=== PATIENT | female | born 1970 | race Caucasian/White ===

== ENCOUNTER 2023-02-02 09:36 | Day surgery (SDC) | payer OTHER ==
[~2023-02-02] VITALS: Ht 170.2 cm; Wt 113.6 kg
[~2023-02-02 09:36] MED LIST: PROM25S PR
[2023-02-02] MEDS ORDERED: LINZESS72 MCG (10:12)
[2023-02-02 11:35] VITALS: BP 129/86
== END 2023-02-02 11:39 | disposition home or self-care (01) ==
LOC: ORSCSDS 09:36
PROVIDERS: Internal Medicine Gastroenterology
PROC: 0DJD8ZZ Inspection of Lower Intestinal Tract, Via Natural or Artificial Opening Endoscopic (ICD-10-PCS; principal; 2023-02-02 11:15)
DX: K59.00 Constipation, unspecified (principal); K64.4 Residual hemorrhoidal skin tags; Z79.899 Other long term (current) drug therapy
CPT/HCPCS: J2704; J7120